=== PATIENT | male | born 1955 | race Two or more races ===

== ENCOUNTER 2019-04-23 15:47 | Outpatient (CLI) | payer BC ==
--- NOTE | 2019-04-23 17:14 | Diagnostic Imaging Report ---
Indication: Right foot pain Technique: 3 views right foot Comparison: none Findings: There are fairly profound degenerative changes of the second metatarsal phalangeal joint, with loss of joint space, subchondral sclerosis, and fairly extensive degenerative remodeling, particularly of the metatarsal head. Mild degenerative changes also the third metatarsophalangeal joint and first metatarsophalangeal joint also noted. No acute fractures. No dislocations. Impression: Degenerative changes, as described. No acute bony trauma
== END 2019-04-23 17:47 | disposition home or self-care (01) ==
LOC: RAD 15:47
DX: L03.031 Cellulitis of right toe (principal); M25.571 Pain in right ankle and joints of right foot